=== PATIENT | female | born 1990 | race Two or more races ===

== ENCOUNTER 2020-10-03 | Outpatient (CLI) | payer OTHER | END 2020-10-03 11:58 | disposition home or self-care (01) | LOC: PPH VACUNA | DX: Z23 Encounter for immunization (principal) ==

== ENCOUNTER 2020-11-02 08:00 | Outpatient (CLI) | payer OTHER | END 2020-11-02 08:30 | disposition home or self-care (01) | LOC: PPH VACUNA 08:00 | DX: Z23 Encounter for immunization (principal) ==